=== PATIENT | male | born 1980 ===

== ENCOUNTER 2016-11-29 12:16 | Emergency (ER) | payer OTHER ==
--- NOTE | 2016-11-29 12:48 | ED PDOC ---
Upper Extremity Pain/Injury Time Seen by Provider: 11/29/16 12:47 Chief Complaint (Nursing): Upper Extremity Problem/Injury Chief Complaint (Provider): RIGHT ARM PAIN History Per: Patient (36 Y/O MALE WITH RIGHT ARM INJURY THAT OCCURRED THIS MORNING AFTER JUMPING OFF BOXES AND ATTEMPTING CATCHING SELF WITH ARM. NOTES BULGING OF RIGHT BICEP ABNORMAL APPEARANCE AND PAIN WITH FLEXION/EXTENSION.) Past Medical History Reviewed: Historical Data, Nursing Documentation, Vital Signs Vital Signs: Last Vital Signs Temp Pulse Resp BP Pulse Ox 98 11/29/16 12:40 - Family History Family History: States: No Known Family Hx - Home Medications Home Medications: Ambulatory Orders Medication Instructions Recorded Ibuprofen [Motrin] 600 mg PO Q8 PRN #21 tab 11/29/16 - Allergies Allergies/Adverse Reactions: Allergies Allergy/AdvReac Type Severity Reaction Status Date / Time No Known Allergies Allergy Verified 11/29/16 12:40 Review of Systems ROS Statement: Except As Marked, All Systems Reviewed And Found Negative Physical Exam - Reviewed Nursing Documentation Reviewed: Yes Vital Signs Reviewed: Yes - Physical Exam Appears: Positive for: Well, Non-toxic, No Acute Distress Head Exam: Positive for: ATRAUMATIC, NORMAL INSPECTION, NORMOCEPHALIC Skin: Positive for: Normal Color, Warm, DRY Eye Exam: Positive for: EOMI, Normal appearance, PERRL ENT: Positive for: Normal ENT Inspection Neck: Positive for: Normal, Painless ROM Cardiovascular/Chest: Positive for: Regular Rate, Rhythm Respiratory: Positive for: CNT, Normal Breath Sounds Gastrointestinal/Abdominal: Positive for: Normal Exam, Bowel Sounds, Soft Back: Positive for: Normal Inspection Extremity: Positive for: Normal ROM, Other (mild swelling of bicep noted with proximal bulging. Able to flex and extend but with pain. 5/5 strength noted right arm.) Neurologic/Psych: Positive for: Alert, Oriented - ECG O2 Sat by Pulse Oximetry: 98 - Progress ED Course And Treament: xry of humerus: neg fx d/w Dr. Livingston Placed in [facility]. Disposition - Clinical Impression Clinical Impression: Arm injury - Patient ED Disposition Is Patient to be Admitted: No - Disposition Referrals: Santa Maldonado MD [Staff Provider] - Disposition: Routine/Home Disposition Time: 13:41 Condition: FAIR Prescriptions: Ibuprofen [Motrin] 600 mg PO Q8 PRN #21 tab PRN Reason: Pain, Moderate (4-7) Instructions: Tendon Rupture (ED), Muscle Strain (ED) Forms: [facility] ED School/Work Excuse
[2016-11-29] MEDS ORDERED: Naproxen 500 MG TAB PO STA (13:40)
[2016-11-29 13:44] VITALS: BP 131/76; PULSE 91; RESP 16; TEMP 97.6; O2SAT 96
[2016-11-29] MEDS ORDERED: Naproxen 500 MG TAB PO ONE (13:50)
--- NOTE | 2016-11-29 15:49 | RAD ---
PROCEDURE: Radiographs of the right humerus. HISTORY: ARM INJURY COMPARISON: None. FINDINGS: BONES: Normal. No fracture or focal lesion. SOFT TISSUES: Normal. OTHER FINDINGS: None. IMPRESSION: Normal radiographs of right humerus.
== END 2016-11-29 14:03 | disposition home or self-care (01) ==
LOC: H.ER 12:16
DX: S49.90XA Unspecified injury of shoulder and upper arm, unspecified arm, initial encounter (principal); W22.8XXA Striking against or struck by other objects, initial encounter; Y92.89 Other specified places as the place of occurrence of the external cause